=== PATIENT | female | born 1995 | race Caucasian/White ===

== ENCOUNTER 2018-08-27 09:30 | Outpatient (CLI) | payer BC, SELFPAY ==
[2018-08-27 10:06] VITALS: BMI 41.3
--- NOTE | 2018-08-27 23:05 | OB.TRI.NOTE ---
History of Present Illness Date of Service: 08/27/18 Was patient seen by the physician?: No Reason For Visit: DECREASED MOVEMENT Date of Service: 08/27/18 Final TERE Source: US <20 weeks Allergies amoxicillin Allergy (Mild, Verified 03/25/17 15:22) Hives clindamycin Allergy (Mild, Verified 03/25/17 15:22) Other BURNING I N CHEST diphenhydramine [From Benadryl] Allergy (Mild, Verified 03/25/17 15:22) Other MADE ME CRY FOR HOURS erythromycin base [From Erythrocin] Allergy (Mild, Verified 03/25/17 15:22) Unknown NST - FHR Rate Baby A Baseline: 150 Variability:: Moderate Accelerations:: 15 x 15 Decelerations:: None NST Reactive:: Yes, Appropriate for gestational age FHR Category:: Category I Uterine Activity:: none Impression/Plan 22yo @ 23.2 wks- decreased movement 1) NST reactive dc home
== END 2018-08-27 10:20 | disposition home or self-care (01) ==
LOC: WPOUT 09:57 → WP 09:58
PROVIDERS: Family Provider Nurse Practitioner Family; PCP Nurse Practitioner Family; Visit Provider Obstetrics & Gynecology
DX: O36.8120 Decreased fetal movements, second trimester, not applicable or unspecified (principal); Z3A.23 23 weeks gestation of pregnancy
CPT/HCPCS: 59025; 59050; 99218; G0378

== ENCOUNTER 2018-12-08 06:40 | Inpatient (IN) | payer BC, SELFPAY ==
[2018-12-08] MEDS: Lactated Ringers 1,000 ML 50 ML IV ×4 (07:50→22:56)
[2018-12-08 08:18] LABS: Absolute Lymphocyte Count 1.86 X10^3/ul (0.83-4.51); Absolute Neutrophil Count 6.3 X10^3/uL (2.0-7.7); Basophil# 0.01 X10^3/uL; Basophil% 0.1 % (0-1); Eosinophil# 0.09 X10^3/uL; Hematocrit 30.6 % (37-47); Hemoglobin 10.3 g/dl (12.0-15.0); Lymphocyte # 1.86 X10^3/ul (4.0); Lymphocyte % 21.2 % (19-41); Mean Corp Hgb Conc 33.7 g/gl (32-36); Mean Corpuscular Volume 89.2 fL (81-99); Mean Platelet Vol. 9.7 fl (6.2-12.0); Monocyte# 0.46 X10^3/uL; Monocyte% 5.2 % (0-10); Neutrophil # 6.33 X10^3/uL (2.7-7.7); Neutrophil % 72.3 % (47-70); Platelet Count 260 K/mm3 (150-450); RBC Distribution Width CV 13.3 % (11.6-14.6); RBC Distribution Width SD 43.1 fl (35.1-43.9); Red Blood Count 3.43 M/mm3 (4.2-5.4); White Blood Count 8.8 K/mm3 (4.4-11.0)
[2018-12-08 08:19] LABS: POSITIVE COUNT NO; POSITIVE DIFFERENTIAL NO; POSITIVE MORPHOLOGY NO
[2018-12-08 08:21] VITALS: BMI 43.8
[2018-12-08] MEDS: 0.9% Normal Saline 100 ML IV.SOLN. INTRA-UTER (08:33)
[2018-12-08] MEDS: Oxytocin 30 units/NS 500 ml 30 UNITS/500 ML IV.SOLN IV (08:44)
[2018-12-08] MEDS: fentaNYL-bupivacaine (epidural) 100 ML BAG EPIDURAL ×3 (11:54→21:05)
[2018-12-08] MEDS: Ondansetron 4 MG/2 ML Vial IV ×2 (16:19→22:45)
--- NOTE | 2018-12-08 22:56 | PCM.HP.OB ---
History Date of Admission: 03/25/17 Final TERE: 12/22/18 Final TERE Source: US <20 weeks Gestational age: 38 Weeks and 0 Days History of this : This is a 22 year-old, 2 para 0-1-0-1 who presents at 38 weeks gestation for induction of labor to gestational hypertension. Is suspected that she may have underlying chronic hypertension. Her blood pressures trended up during the third . She did not have any evidence of preeclampsia and decision was made to induce her at 38 weeks for either increasing blood pressures with chronic hypertension, or gestational hypertension. She denies any headache or visual disturbances. She denies any epigastric pain. She is had good movement. She denies any vaginal bleeding or leaking of fluid. Previous obstetrical history is significant for a 35-week 6-day induction labor due to preeclampsia. Patient was on magnesium during this labor. She had a vaginal delivery of a 5 pound 12 ounce infant. Current is complicated to date by maternal obesity with BMI of 43 and gestational hypertension. Past medical history is significant for thyroid nodules Medications include labetalol 100 mg p.o. twice daily and vitamins. Allergies amoxicillin Allergy (Mild, Verified 12/08/18 08:23) Hives clindamycin Allergy (Mild, Verified 12/08/18 08:23) Other BURNING I N CHEST diphenhydramine [From Benadryl] Allergy (Mild, Verified 12/08/18 08:23) Other MADE ME CRY FOR HOURS erythromycin base [From Erythrocin] Allergy (Mild, Verified 12/08/18 08:23) Unknown Home Medications: Home Medications Vits [Prenatabs FA] 1 tablet PO DAILY 08/27/18 Labetalol [Trandate] 100 mg PO BID 12/08/18 Magnesium 250 mg PO BID 12/08/18 Smoking Status: Never smoker Alcohol: None Number of Fetus(es): 1 History Past Pregnancies: Past Pregnancies Delivery Date Name GA/Weeks Outcome Route Weight Gender Labor Length Anesthesia Delivery Location Provider FOB Expected Infant Delivery Method: Spontaneous Vaginal Review of Systems Constitutional: Denies: Anorexia, Chills, Fever Eyes: Denies: Blurred vision, Double vision Cardiovascular: Reports: Edema. Denies: Chest Pain Respiratory: Denies: Cough, Shortness of Breath Gastrointestinal: Denies: Abdominal Pain, Diarrhea Skin: Denies: Rash Neurological: Denies: Blurred vision, Change in Speech Hematologic/ Lymphatic: Denies: Anemia, Hx of blood clot Physical Exam General: Alert, Cooperative, No apparent distress Cardiovascular: Regular rate Abdomen: Soft, Non-Distended, Gravid, Appropriate for Gestational Age Extremities:: Deep tendon reflexes - 2+, Other - edema 1+ Neurological: Negative for: Clonus [employer]: Normal external genitalia Estimated gestational size: Appropriate for gestational size Presentation: Cephalic Assessment/Plan This is a 22 year-old, 2 para 0-1-0-1 at 38 weeks gestation with gestational hypertension. No evidence of preeclampsia but will monitor the for this in labor and . We will continue labetalol . Estimated weight at last ultrasound was 3891 g. Pelvis is clinically adequate to expect vaginal delivery. We will proceed with Jackson cervical ripening and Pitocin, AROM induction of labor. Patient's questions were answered to her satisfaction she desires to proceed Procedure note: This morning at approximately 0840 Jackson catheter was placed into the cervical loss using a Jackson catheter guide. Balloon was inflated to 30 cc and placement over the internal cervical loss was confirmed. The patient and fetus tolerated the procedure well.
[2018-12-09] MEDS: fentaNYL-bupivacaine (epidural) 100 ML BAG EPIDURAL (02:34)
[2018-12-09] MEDS: Ondansetron 4 MG/2 ML Vial IV (02:53)
[2018-12-09] MEDS: Acetaminophen 325 MG Tablet PO (04:58)
[2018-12-09] MEDS: Lactated Ringers 1,000 ML 50 ML IV (05:34)
[2018-12-09] MEDS: Oxytocin 30 units/NS 500 ml 30 UNITS/500 ML IV.SOLN 334 UNITS IV (06:35)
--- NOTE | 2018-12-09 06:47 | PCM.OPRPT ---
Vaginal Delivery Maternal Presentation: Medically Indicated Induction - Gestational hypertension Method of Induction: Pitocin, Jackson Bulb, Amniotomy Medical Reason for Induction: Gestational Hypertension Amniotic Membrane Rupture Type: Artificial Amniotic Fluid Description: Lightly stained meconium Final TERE: 12/23/18 Final TERE Source: US <20 weeks Gestational age: 38 Weeks and 0 Days Date of Procedure: 12/09/18 Pre-Operative Diagnosis: Labor Post-Operative Diagnosis: Labor Surgery/ Procedure Performed: Spontaneous Vaginal Delivery Type of Anesthesia: Epidural Description of Procedure: A vigorous male was delivered YOHANA over an intact perineum. The remainder the infant was delivered with maternal pushing and gentle traction only in less than 15 seconds. The Pitocin infusion was initiated for active management of the third stage. The cord was clamped and cut after 1 minute. The was attended to by the waiting nursing staff. The placenta was delivered spontaneously and intact. The cervix and vagina were intact. Sponge and needle counts were correct. A vaginal sweep was completed by me. Presentation: YOHANA Placental Delivery Description: Spontaneous Placenta Disposition: [facility] Cord Vessel Description: 3 Vessels Cord Entanglement: None Drain: Jackson to straight drain Estimated Blood Loss: 300 A gender: Male (1 minute): 8 (5 minute): 9 Episiotomy Description: None Laceration: None Medications given after delivery: IV Pitocin Complications: None
[2018-12-09] MEDS: Oxytocin 30 units/NS 500 ml 30 UNITS/500 ML IV.SOLN 167 UNITS IV (07:05)
[2018-12-09] MEDS: 0.9% Saline Lock 10 ML Syringe IV (08:15)
--- NOTE | 2018-12-09 09:29 | NURSING ---
lab result verified per Dr. Bell and corrected in computer
[2018-12-09] MEDS: Labetalol 100 MG Tablet PO ×3 (09:41→21:05)
[2018-12-09] MEDS: Ibuprofen 600 MG Tablet PO ×2 (10:29→21:05)
[2018-12-09 11:30] VITALS: BP 151/74; PULSE 93; RESP 16; TEMP 36.8
[2018-12-09 12:20] VITALS: BP 142/73
[2018-12-09] MEDS: Senna/Docusate Sodium 1 Tablet PO (14:48)
[2018-12-09 16:00] VITALS: BP 133/79; PULSE 93; RESP 16; TEMP 36.5; O2SAT 98
[2018-12-09 20:50] VITALS: BP 133/72; PULSE 85; RESP 16; TEMP 36.6
[2018-12-10] VITALS (8 sets, daily range): BP systolic 135–155; BP diastolic 65–93; PULSE 75–93; RESP 16–18; TEMP 36.2–36.8; O2SAT 99
[2018-12-10] MEDS: Labetalol 100 MG Tablet PO ×3 (06:32→22:02)
[2018-12-10] MEDS: Senna/Docusate Sodium 1 Tablet PO (08:14)
[2018-12-10 08:37] LABS: Hematocrit 29.3 % (37-47); Hemoglobin 9.9 g/dl (12.0-15.0); Mean Corp Hgb Conc 33.8 g/gl (32-36); Mean Corpuscular Hgb 30.5 pg (27.0-32.0); Mean Corpuscular Volume 90.2 fL (81-99); Platelet Count 250 K/mm3 (150-450); RBC Distribution Width CV 13.4 % (11.6-14.6); RBC Distribution Width SD 43.9 fl (35.1-43.9); Red Blood Count 3.25 M/mm3 (4.2-5.4)
[2018-12-10 08:39] LABS: Scan Indicated on CBC? Y/N NO
--- NOTE | 2018-12-10 11:35 | PCM.PN.OB ---
Subjective: Pain well controlled, average lochia, denies headache, visual disturbances or epigastric pain. She is working on breast-feeding, but is getting a little anxious that the night is not getting enough intake. has been working with the patient. - Physical Exam General: Alert, Cooperative, No apparent distress Extremities: Edema - 2+ edema, 2+ DTRs, no clonus Vital Signs Temp Pulse Resp BP Pulse Ox 97.8 F 83 16 139/82 H 99 12/10/18 08:16 12/10/18 08:16 12/10/18 08:16 12/10/18 08:16 12/10/18 08:16 Oxygen Delivery Method Room Air Weight: 127.006 kg Body Mass Index (BMI) 43.8 Intake and Output for Last 24 Hours 12/08/18 12/09/18 12/10/18 23:59 23:59 23:59 Intake Total 2119 / 2119 4023 / 4023 Output Total 4875 / 4875 5650 / 5650 Balance -2756 / -2756 -1627 / -1627 Laboratory Tests Past 24 Hrs 12/10/18 08:00 WBC 17.0 H RBC 3.25 L Hgb 9.9 L Hct 29.3 L MCV 90.2 MCH 30.5 MCHC 33.8 RDW 13.4 RDW Differential 43.9 Plt Count 250 MPV 10.0 Medical Necessity - Tobacco Use Smoking Status: Never smoker Assessment/Plan Post perm day #1 status post spontaneous vaginal delivery, doing well. Blood pressures are stable but mildly elevated. We will continue labetalol 100 mg p.o. 3 times daily. Hemoglobin and platelets are stable today. Encourage patient to continue working on nursing with her nurse and to ensure she is comfortable with this. I encouraged the patient if she is not comfortable with how things are going, to ask for advice. Otherwise, routine care today and will likely discharge patient home tomorrow if blood pressures are stable.
--- NOTE | 2018-12-10 16:04 | NURSING ---
Dr Whipple notified face to face of BP's. No change in orders.
[2018-12-11 02:25] VITALS: BP 148/92; PULSE 80; RESP 18; TEMP 36.1
[2018-12-11 06:36] VITALS: BP 151/93
[2018-12-11] MEDS: Labetalol 100 MG Tablet PO (06:36)
--- NOTE | 2018-12-11 06:42 | NURSING ---
BP taken with administration of Labetolol
[2018-12-11 08:30] VITALS: BP 149/89; PULSE 77; RESP 16; TEMP 36.1
--- NOTE | 2018-12-11 09:20 | PCM.PN.OB ---
Subjective: Doing well per patient and nursing staff. Ambulating and taking PO without difficulty. Voiding and passing flatus. without difficulty. Denies increased vaginal bleeding or clots. Denies any headaches, visual changes, chest pain , or SOB. Discharge home today. - Physical Exam General: Alert, Cooperative HEENT: Atraumatic, Normocephalic Neck: Trachea Midline Lungs: Clear to auscultation, Normal air movement, No rhonchi, No wheeze Cardiovascular: Regular rate, Regular Rhythm, No murmurs Abdomen: Bowel Sounds Present, - - Fundus Firm 2 below U Extremities: No edema, - - Sen's negative Neurological: Deep Tendon Reflexes 2+/4 and Symmetrical, - - No clonus Psych/Mental Status: Normal Affect, Appropriate Vital Signs Temp Pulse Resp BP Pulse Ox 96.9 F L 77 16 149/89 H 99 12/11/18 08:30 12/11/18 08:30 12/11/18 08:30 12/11/18 08:30 12/10/18 08:16 Oxygen Delivery Method Room Air Weight: 280 lb Body Mass Index (BMI) 43.8 Intake and Output for Last 24 Hours 12/09/18 12/10/18 12/11/18 23:59 23:59 23:59 Intake Total 4023 / 4023 Output Total 5650 / 5650 Balance -1627 / -1627 Medical Necessity - Tobacco Use Smoking Status: Never smoker Assessment/Plan A: PPD #2 Gestational HTN P: 1) Routine and instructions given. 2) Discharge instructions given 3) BP remaining elevated, consulted . Increase Labetalol 200mg PO TID. Follow up in office for BP check in 3 days. Reviewed Pre-e warning signs and when to call. Patient voiced understanding. She will be checking BP at home and call if elevated. 4) Follow up in 2 weeks and 6 weeks. 5) Discharge home today.
--- NOTE | 2018-12-11 09:27 | PCM.DCVAG ---
Discharge Diet: No Restrictions Discharge Activity: Return to Normal Activity, May Drive, May Shower, May Take a Tub Bath May resume sexual activity in: 4-6 weeks Additional Activity Instructions:: Nothing in the vagina for 4-6 weeks. You may return to work/school in 6 weeks. Call your doctor if your incision/area has: Continuous Slow Oozing, Sudden Increased Bleeding, Increased Pain/ Swelling, Increased Redness, Foul Smelling Discharge Call your doctor if you observe: Fever of 101 or Higher, Inability to urinate, Inability to have a bowel movement, Using more than one pad per hour, Shortness of breath, Calf discomfort, Uncontrolled pain Additional Instructions: If you experience any of the following, contact your healthcare provider. Bleeding that soaks a pad every hour for 2 hours Fever 100.4 or higher Unrelieved incision or abdominal pain Swelling, redness, discharge or bleeding from your incision or episiotomy site Your incision begins to separate Problems urinating (including inability to urinate or burning while urinating). Visual changes Severe headache Flu-like symptoms Pain or redness in one of both of your breasts Pain, warmth, tenderness or swelling in your legs, especially the calf area Frequent nausea and vomiting Symptoms of depression or anxiety If you experience any of the following, call 911 or go to the nearest Emergency Room. Chest pain Problems breathing Seizure activity Partial or complete paralysis of a body part, slurred speech, weakness or drooping of the face, or a sudden inability to walk or hold your balance Allergies/Adverse Reactions: Allergies amoxicillin Allergy (Mild, Verified 12/08/18 08:23) Hives clindamycin Allergy (Mild, Verified 12/08/18 08:23) Other BURNING I N CHEST diphenhydramine [From Benadryl] Allergy (Mild, Verified 12/08/18 08:23) Other MADE ME CRY FOR HOURS erythromycin base [From Erythrocin] Allergy (Mild, Verified 12/08/18 08:23) Unknown Medications to take at Discharge Vits [Prenatabs FA] 1 tablet PO DAILY 08/27/18 Magnesium 250 mg PO BID 12/08/18 Labetalol [Trandate (Beta Johanny)] 200 mg PO TID #90 tablet 12/11/18 Please Follow Up With: Ofelia Whipple MD When: Call to make an appointment with your doctor in 3 days for BP check. Make appointment 6 weeks. If you had elevated Blood Pressure or 4th degree laceration you will need to be seen in 2 weeks. Primary Care Physician: Hanna Grimes NP-C [Primary Care Provider] - Test Results: Test results from this visit will be discussed in further detail at your follow-up appointment, if applicable.
--- NOTE | 2018-12-11 09:30 | DCINST_ITS ---
Discharge Diet: No Restrictions Discharge Activity: Return to Normal Activity, May Drive, May Shower, May Take a Tub Bath May resume sexual activity in: 4-6 weeks Additional Activity Instructions:: Nothing in the vagina for 4-6 weeks. You may return to work/school in 6 weeks. Call your doctor if your incision/area has: Continuous Slow Oozing, Sudden Increased Bleeding, Increased Pain/ Swelling, Increased Redness, Foul Smelling Discharge Call your doctor if you observe: Fever of 101 or Higher, Inability to urinate, Inability to have a bowel movement, Using more than one pad per hour, Shortness of breath, Calf discomfort, Uncontrolled pain Additional Instructions: If you experience any of the following, contact your healthcare provider. * Bleeding that soaks a pad every hour for 2 hours * Fever 100.4 or higher * Unrelieved incision or abdominal pain * Swelling, redness, discharge or bleeding from your incision or episiotomy site * Your incision begins to separate * Problems urinating (including inability to urinate or burning while urinating). * Visual changes * Severe headache * Flu-like symptoms * Pain or redness in one of both of your breasts * Pain, warmth, tenderness or swelling in your legs, especially the calf area * Frequent nausea and vomiting * Symptoms of depression or anxiety If you experience any of the following, call 911 or go to the nearest Emergency Room. * Chest pain * Problems breathing * Seizure activity * Partial or complete paralysis of a body part, slurred speech, weakness or drooping of the face, or a sudden inability to walk or hold your balance Allergies/Adverse Reactions: Allergies amoxicillin Allergy (Mild, Verified 12/08/18 08:23) Hives clindamycin Allergy (Mild, Verified 12/08/18 08:23) Other BURNING I N CHEST diphenhydramine [From Benadryl] Allergy (Mild, Verified 12/08/18 08:23) Other MADE ME CRY FOR HOURS erythromycin base [From Erythrocin] Allergy (Mild, Verified 12/08/18 08:23) Unknown Medications to take at Discharge Vits [Prenatabs FA] 1 tablet PO DAILY 08/27/18 Magnesium 250 mg PO BID 12/08/18 Labetalol [Trandate (Beta Johanny)] 200 mg PO TID #90 tablet 12/11/18 Please Follow Up With: Ofelia Whipple MD When: Call to make an appointment with your doctor in 3 days for BP check. Make appointment 6 weeks. If you had elevated Blood Pressure or 4th degree laceration you will need to be seen in 2 weeks. Primary Care Physician: Hanna Grimes NP-C [Primary Care Provider] - Test Results: Test results from this visit will be discussed in further detail at your follow- up appointment, if applicable.
--- NOTE | 2018-12-16 14:04 | NURSING ---
On follow up phone call states feeling better. Patient was re admitted for elevated bp. States all the nurses were great.
== END 2018-12-11 10:40 | disposition home or self-care (01) | DRG 807 ==
PROVIDERS: Admitting Provider Obstetrics & Gynecology; Family Provider Nurse Practitioner Family; PCP Nurse Practitioner Family; Referring Provider Obstetrics & Gynecology; Visit Provider Obstetrics & Gynecology
DX: O13.4 Gestational [pregnancy-induced] hypertension without significant proteinuria, complicating childbirth (principal); Z37.0 Single live birth; O99.214 Obesity complicating childbirth; E66.9 Obesity, unspecified; O77.0 Labor and delivery complicated by meconium in amniotic fluid; Z3A.38 38 weeks gestation of pregnancy
CPT/HCPCS: 59025; 59050; 85025; 85027; 86850; 86900; 99218; J7120; A4216; G0378; J2405

== ENCOUNTER 2018-12-13 16:42 | Inpatient (IN) | payer BC, SELFPAY ==
[2018-12-13] VITALS (8 sets, daily range): BP systolic 122–165; BP diastolic 64–95; PULSE 82–115; RESP 16–20; TEMP 36.9–37.3; O2SAT 96–97; BMI 41.0
--- NOTE | 2018-12-13 16:39 | EKGRS_ITS ---
Test Reason : HTN Blood Pressure : / mmHG Vent. Rate : 086 BPM Atrial Rate : 086 BPM P-R Int : 108 ms QRS Dur : 100 ms QT Int : 358 ms P-R-T Axes : 056 087 042 degrees QTc Int : 428 ms Sinus rhythm with short TN Otherwise normal ECG No previous ECGs available Confirmed by JESSICA REECE, DAMASO ([id number]), order editor AUBREY PEDRO ([id number] on 12/25/2018 2:54:45 PM Referred By: Ofelia Whipple Confirmed By:DAMASO LOPEZ MD
[2018-12-13] MEDS: 0.9% NaCl Peripheral Flush Adult/Peds IV ×4 (16:45→18:42)
[2018-12-13 17:18] LABS: Hematocrit 36.4 % (37-47); Hemoglobin 12.3 g/dl (12.0-15.0); Mean Corp Hgb Conc 33.8 g/gl (32-36); Mean Corpuscular Hgb 30.2 pg (27.0-32.0); Mean Corpuscular Volume 89.4 fL (81-99); Mean Platelet Vol. 10.3 fl (6.2-12.0); Platelet Count 399 K/mm3 (150-450); RBC Distribution Width CV 12.7 % (11.6-14.6); RBC Distribution Width SD 41.3 fl (35.1-43.9); Red Blood Count 4.07 M/mm3 (4.2-5.4); White Blood Count 12.9 K/mm3 (4.4-11.0)
[2018-12-13 17:25] LABS: Scan Indicated on CBC? Y/N NO
[2018-12-13] MEDS: Ibuprofen 600 MG Tablet PO (17:51)
--- NOTE | 2018-12-13 18:09 | PCM.HP.BLA ---
History and Physical Date of Admission: 12/13/18 22-year-old multigravida female status post spontaneous vaginal delivery on 12/09/2018 after induction for gestational hypertension presents for elevated blood pressures . She also has a headache in the back of her head that she has had all day that approximately 5 out of 10 not relieved with ibuprofen. She denies any visual disturbances or epigastric pain. She presented to the office today with persistently elevated blood pressures and was sent to labor and delivery for evaluation. Review of systems: General: No fevers or chills cardiac: No chest pain or palpitations resp: no SOB or Cough heme- no h/o prolonged bleeding or easy bruising PE_ see vitals general- awake, alert, NAD, tearful abd -soft ,nontender ext-2+ Edema, 2+ DTRs, no clonus a/p 22-year-old female multigravida status vaginal delivery on 12/09/2018 now with what appears to be preeclampsia. Required IV hydralazine. Will start on Procardia p.o. Will use IV hydralazine as needed for breakthrough. Labs are stable. Will initiate magnesium prophylaxis overnight. Reevaluate in the morning. Will likely need to go home on increased labetalol and Procardia.
[2018-12-13] MEDS: hydrALAZINE 20 MG/ML Vial 10 MG IV ×2 (18:12→18:42)
[2018-12-13 18:15] LABS: BNP,B-Type NATRIURETIC PEPTIDE 67.6 pg/mL (0-100)
[2018-12-13] MEDS: NIFEdipine 30 MG Tablet PO (18:30)
[2018-12-13 18:45] LABS: ALB/GLOB Ratio 0.8 RATIO (0.9-2.4); AST(SGOT) 40 U/L (15-37); Alanine Aminotransfer ALT/SGPT 50 U/L (13-56); Albumin, Serum 3.3 g/dL (3.2-5.0); Alkaline Phosphatase 89 U/L (45-117); Anion Gap 7 (5-15); BUN 9 mg/dL (7-18); BUN/Creat Ratio 14.3 RATIO (10-20); Calcium,Total 8.8 mg/dL (8.5-10.1); Chloride 107 mmol/L (98-107); Creatinine, Serum 0.63 mg/dL (0.55-1.02); EST Glomerular Filtration Rate 122 mL/min (>60); Est Glom Filt Rate - Afr Amer 148 mL/min (>60); Globulin 4.3 g/dL (2.2-4.2); Glucose 89 mg/dL (74-106); Potassium 3.5 mmol/L (3.5-5.1); Protein, Total 7.6 g/dL (6.4-8.2); Sodium Level 141 mmol/L (136-145); Thyroid Stim Hormone (TSH) 2.01 uIU/mL (0.358-3.74)
[2018-12-13] MEDS: Magnesium Sulfate 20 GM/500 ML BAG IV (19:25)
[2018-12-13] MEDS: Acetaminophen 500 MG Tablet 1000 MG PO (20:28)
--- NOTE | 2018-12-13 20:56 | NURSING ---
1910 See QS system for vital signs per hypertension protocol.
--- NOTE | 2018-12-13 21:51 | NURSING ---
0079 called in to check on pt status. Reviewed recent BP values, c/o headache 09/03 and medications given. Plan to continue as is and call if any further changes.
[2018-12-13] MEDS: Labetalol 200 MG Tablet 300 MG PO (21:56)
[2018-12-14] VITALS (20 sets, daily range): BP systolic 95–143; BP diastolic 54–87; PULSE 76–112; RESP 14–20; TEMP 36.8–37.3; O2SAT 95–99
--- NOTE | 2018-12-14 01:58 | NURSING ---
0158 Pt has increased facial swelling, specifically around eyes since start of magnesium infusion. Cold cloth given to pt to help reduce swelling. Pt denies any other pertinent symptoms of pre-eclampsia or adverse reaction to medication.
[2018-12-14] MEDS: Ibuprofen 600 MG Tablet PO ×3 (03:35→19:42)
[2018-12-14] MEDS: Magnesium Sulfate 20 GM/500 ML BAG IV ×2 (04:42→14:31)
[2018-12-14] MEDS: Labetalol 200 MG Tablet 300 MG PO ×3 (05:41→22:18)
--- NOTE | 2018-12-14 05:51 | NURSING ---
8809 updated on pt status through the night and BP values. Discussed POC to keep magnesium for 24Hours at this time, will reassess around lunchtime.
[2018-12-14] MEDS: Acetaminophen 500 MG Tablet 1000 MG PO ×3 (07:40→23:48)
--- NOTE | 2018-12-14 09:20 | NURSING ---
urine specimen obtained. peripheral stick for lab draw done. specimens sent to lab. pt tolerated well. pt's in room. pt is nursing baby at this time. pt states tylenol decreased her headache level to a 1/10. pt c/o some blurry vision
[2018-12-14 09:40] LABS: Hematocrit 35.7 % (37-47); Hemoglobin 12.1 g/dl (12.0-15.0); Mean Corp Hgb Conc 33.9 g/gl (32-36); Mean Corpuscular Hgb 30.5 pg (27.0-32.0); Mean Corpuscular Volume 89.9 fL (81-99); Mean Platelet Vol. 9.5 fl (6.2-12.0); Platelet Count 356 K/mm3 (150-450); RBC Distribution Width CV 13.2 % (11.6-14.6); RBC Distribution Width SD 42.8 fl (35.1-43.9); Red Blood Count 3.97 M/mm3 (4.2-5.4); Scan Indicated on CBC? Y/N NO; White Blood Count 15.1 K/mm3 (4.4-11.0)
[2018-12-14] MEDS: NIFEdipine 30 MG Tablet PO (09:42)
[2018-12-14 09:46] LABS: International Normalized Ratio 1.1; Prothrombin Time (Protime)PT. 13.6 SECONDS (11.7-14.9)
[2018-12-14 09:52] LABS: AST(SGOT) 24 U/L (15-37); Alanine Aminotransfer ALT/SGPT 41 U/L (13-56); Creatinine, Serum 0.59 mg/dL (0.55-1.02); EST Glomerular Filtration Rate 133 mL/min (>60); Est Glom Filt Rate - Afr Amer 161 mL/min (>60); Estimated Creatinine Clearance 142.98 ml/min; Protein, Urine (Random) 56.6 mg/dL (<11.9); Protein:Creat Ratio 582 mg/g CRE (0-200); Uric Acid 5.9 mg/dL (2.6-6.0)
--- NOTE | 2018-12-14 11:30 | NURSING ---
pt states that her vision has cleared up and is no longer blurry
--- NOTE | 2018-12-14 13:00 | PN.OBGYN_ITS ---
Subjective: Patient laying down in bed, IV Magnesium per protocol continues to infuse at this time. Patient reports improvement of LERNER though she reports my eyes feel really puffy and swollen. Patient denies scotoma, RUQ pain or dizziness. Patient continues to pump breastmilk at this time. Objective: VSS, Afebrile - patient has been normotensive since this morning Magnesium infusing at 2g/hr Rpt Pre-E bloodwork done - now liver enzymes WNL A+O x 3, NAD Abdomen NT x 4 quadrants +2/4 reflexes in LE, no clonus, no edema negative calf tenderness to palpation - Physical Exam General: Alert, Oriented x3, Cooperative HEENT: Atraumatic, PERRLA, EOMI, Normocephalic Lungs: Clear to auscultation, Normal air movement Cardiovascular: Regular rate, No murmurs Abdomen: Soft, Non Tender Extremities: No edema, Capillary Refill Less than 3 Seconds, No Calf Tenderness, Peripheral Pulses Normal Skin: No rashes, No breakdown Musculoskeletal: No Tenderness to Palpation of Joints or Extremities Neurological: Cranial nerves II-XII grossly intact, Deep Tendon Reflexes 2+/4 and Symmetrical, Neuro grossly intact, Motor Exam 5/5 strength throughout Psych/Mental Status: Normal Affect, Appropriate Vital Signs Temp Pulse Resp BP Pulse Ox 98.2 F 90 16 109/56 L 97 12/14/18 11:30 12/14/18 11:30 12/14/18 11:30 12/14/18 11:30 12/14/18 11:30 Oxygen Delivery Method Room Air Weight: 262 lb Body Mass Index (BMI) 41.0 Intake and Output for Last 24 Hours 12/12/18 12/13/18 12/14/18 23:59 23:59 23:59 Intake Total 1217 / 1217 2744 / 2744 Output Total 1200 / 1200 2225 / 2225 Balance 519 / 519 Laboratory Tests Past 24 Hrs 12/13/18 12/13/18 12/13/18 16:41 16:41 16:41 WBC 12.9 H RBC 4.07 L Hgb 12.3 Hct 36.4 L MCV 89.4 MCH 30.2 MCHC 33.8 RDW 12.7 RDW Differential 41.3 Plt Count 399 MPV 10.3 PT INR APTT Sodium 141 Potassium 3.5 Chloride 107 Carbon Dioxide 27.0 Anion Gap 7 BUN 9 Creatinine 0.63 Estim Creat Clear Calc 133.90 Est GFR (MDRD) Af Amer 148 Est GFR (MDRD) Non-Af 122 BUN/Creatinine Ratio 14.3 Glucose 89 Uric Acid Calcium 8.8 Total Bilirubin 0.20 AST 40 H ALT 50 Alkaline Phosphatase 89 B-Natriuretic Peptide 67.6 Total Protein 7.6 Albumin 3.3 Globulin 4.3 H Albumin/Globulin Ratio 0.8 L TSH 2.01 U Random Total Protein Urine Creatinine Protein/Creatinin Ratio 12/14/18 12/14/18 12/14/18 09:30 09:30 09:30 WBC 15.1 H RBC 3.97 L Hgb 12.1 Hct 35.7 L MCV 89.9 MCH 30.5 MCHC 33.9 RDW 13.2 RDW Differential 42.8 Plt Count 356 MPV 9.5 PT 13.6 INR 1.1 APTT 29.0 Sodium Potassium Chloride Carbon Dioxide Anion Gap BUN Creatinine 0.59 Estim Creat Clear Calc 142.98 Est GFR (MDRD) Af Amer 161 Est GFR (MDRD) Non-Af 133 BUN/Creatinine Ratio Glucose Uric Acid 5.9 Calcium Total Bilirubin AST 24 ALT 41 Alkaline Phosphatase B-Natriuretic Peptide Total Protein Albumin Globulin Albumin/Globulin Ratio TSH U Random Total Protein Urine Creatinine Protein/Creatinin Ratio 12/14/18 09:30 WBC RBC Hgb Hct MCV MCH MCHC RDW RDW Differential Plt Count MPV PT INR APTT Sodium Potassium Chloride Carbon Dioxide Anion Gap BUN Creatinine Estim Creat Clear Calc Est GFR (MDRD) Af Amer Est GFR (MDRD) Non-Af BUN/Creatinine Ratio Glucose Uric Acid Calcium Total Bilirubin AST ALT Alkaline Phosphatase B-Natriuretic Peptide Total Protein Albumin Globulin Albumin/Globulin Ratio TSH U Random Total Protein 56.6 H Urine Creatinine 97.20 Protein/Creatinin Ratio 582 H Medical Necessity - Tobacco Use Smoking Status: Never smoker Assessment/Plan 22 y/o s/p with readmission for PP pre-eclampsia P: 1) Consultation with Dr. Nevarez - will continue the PP Magnesium IV inf usion for a total of 24 hours - will discontinue at 7pm today 2) Continue present management Karen Claudio APRN-JODY
--- NOTE | 2018-12-14 13:55 | NURSING ---
Dr. Whipple on unit. plan for magnesium discussed. plan to discontinue magnesium drip at 1700
--- NOTE | 2018-12-14 22:28 | NURSING ---
pt complaint of headache at base of neck. BP taken and within normal limits. @ 2114 CMasonCNM on unit and made aware. plan is to continue alternating Motrin and Tylenol with Labetalol as ordered and to continue to monitor.
[2018-12-15] MEDS: Ibuprofen 600 MG Tablet PO (03:22)
[2018-12-15 03:23] VITALS: BP 125/66; PULSE 100; RESP 17
[2018-12-15] MEDS: Labetalol 200 MG Tablet 300 MG PO (06:17)
--- NOTE | 2018-12-15 08:47 | PCM.PN.OB ---
Subjective: Doing well per patient and nursing staff. Headache much improved. Admits to annoying dull ache present still but has not been up out of bed this am. Denies any scotoma, chest pain, SOB, or RUQ abdominal pain. Patient stating she feels much better from when she originally presented with headache. Pumping with breast pump. - Physical Exam General: Alert, Oriented x3, Cooperative HEENT: Atraumatic, Normocephalic Neck: Trachea Midline Lungs: Clear to auscultation, Normal air movement, No rhonchi, No wheeze Cardiovascular: Regular rate, Regular Rhythm, No murmurs Abdomen: Bowel Sounds Present Extremities: No edema Neurological: Deep Tendon Reflexes 2+/4 and Symmetrical, - - No clonus Psych/Mental Status: Normal Affect, Appropriate Vital Signs Temp Pulse Resp BP Pulse Ox 99.0 F 100 17 125/66 H 96 12/14/18 19:40 12/15/18 03:23 12/15/18 03:23 12/15/18 03:23 12/14/18 16:40 Oxygen Delivery Method Room Air Weight: 262 lb Body Mass Index (BMI) 41.0 Intake and Output for Last 24 Hours 12/13/18 12/14/18 12/15/18 23:59 23:59 23:59 Intake Total 1217 / 1217 3818.5 / 3818.5 Output Total 1200 / 1200 3625 / 3625 Balance 193.5 / 193.5 Laboratory Tests Past 24 Hrs 12/14/18 12/14/18 12/14/18 09:30 09:30 09:30 WBC 15.1 H RBC 3.97 L Hgb 12.1 Hct 35.7 L MCV 89.9 MCH 30.5 MCHC 33.9 RDW 13.2 RDW Differential 42.8 Plt Count 356 MPV 9.5 PT 13.6 INR 1.1 APTT 29.0 Creatinine 0.59 Estim Creat Clear Calc 142.98 Est GFR (MDRD) Af Amer 161 Est GFR (MDRD) Non-Af 133 Uric Acid 5.9 AST 24 ALT 41 U Random Total Protein Urine Creatinine Protein/Creatinin Ratio 12/14/18 09:30 WBC RBC Hgb Hct MCV MCH MCHC RDW RDW Differential Plt Count MPV PT INR APTT Creatinine Estim Creat Clear Calc Est GFR (MDRD) Af Amer Est GFR (MDRD) Non-Af Uric Acid AST ALT U Random Total Protein 56.6 H Urine Creatinine 97.20 Protein/Creatinin Ratio 582 H Medical Necessity - Tobacco Use Smoking Status: Never smoker Assessment/Plan A: pre-eclampsia P: 1) Consulted and patient ok for discharge today. BP stable. Mag stopped last evening at 7pm. 2) Discharge home with Labetalol 200mg PO TID and Procardia 60mg PO once daily. 3) Follow up in office on Tuesday with for visit in 4 days.
[2018-12-15 08:55] VITALS: BP 123/63; PULSE 102; RESP 16; TEMP 37.9
--- NOTE | 2018-12-15 08:55 | DCINST_ITS ---
Discharge Diet: No Restrictions Discharge Activity: Return to Normal Activity, May Drive, May Shower, May Take a Tub Bath May resume sexual activity in: 4-6 weeks Weight Bearing Status: Full weight bearing Call your doctor if you observe: Fever of 101 or Higher, Inability to urinate, Inability to have a bowel movement, Using more than one pad per hour, Shortness of breath, Dizziness, Swelling in the ankles, Chest pain, Increased palpitations (irregular heartbeat), Uncontrolled pain Additional Instructions: If you experience any of the following, contact your healthcare provider. * Bleeding that soaks a pad every hour for 2 hours * Fever 100.4 or higher * Unrelieved incision or abdominal pain * Swelling, redness, discharge or bleeding from your incision or episiotomy site * Your incision begins to separate * Problems urinating (including inability to urinate or burning while urinating). * Visual changes * Severe headache * Flu-like symptoms * Pain or redness in one of both of your breasts * Pain, warmth, tenderness or swelling in your legs, especially the calf area * Frequent nausea and vomiting * Symptoms of depression or anxiety If you experience any of the following, call 911 or go to the nearest Emergency Room. * Chest pain * Problems breathing * Seizure activity * Partial or complete paralysis of a body part, slurred speech, weakness or drooping of the face, or a sudden inability to walk or hold your balance Allergies/Adverse Reactions: Allergies amoxicillin Allergy (Mild, Verified 12/08/18 08:23) Hives clindamycin Allergy (Mild, Verified 12/08/18 08:23) Other BURNING I N CHEST diphenhydramine [From Benadryl] Allergy (Mild, Verified 12/08/18 08:23) Other MADE ME CRY FOR HOURS erythromycin base [From Erythrocin] Allergy (Mild, Verified 12/08/18 08:23) Unknown Medications to take at Discharge Labetalol [Trandate (Beta Johanny)] 200 mg PO TID #90 tablet 12/11/18 NIFEdipine [Procardia Xl] 60 mg PO DAILY #30 tab 12/15/18 The following prescriptions were given: NIFEdipine [Procardia Xl] 60 mg PO DAILY #30 tab When: Call to make an appointment with on TuesdayDecember 19. Primary Care Physician: Opheim,Hanna, [employer]NS[employer] CASE MANAGER-C [Primary Care Provider] - Test Results: Test results from this visit will be discussed in further detail at your follow- up appointment, if applicable.
[2018-12-15] MEDS: NIFEdipine 60 MG Tablet PO (09:03)
--- NOTE | 2018-12-15 10:49 | NURSING ---
1000 dc to home pt able to verbalizes s/s of pre e and when to f/u with a appt. and when to call physician
== END 2018-12-15 10:00 | disposition home or self-care (01) | DRG 776 ==
LOC: WPOUT 12-14 10:40 → WP 12-14 10:41
PROVIDERS: Advanced Practice Midwife; Admitting Provider Obstetrics & Gynecology; Family Provider Nurse Practitioner Family; PCP Nurse Practitioner Family; Referring Provider Obstetrics & Gynecology; Visit Provider Obstetrics & Gynecology
DX: O14.95 Unspecified pre-eclampsia, complicating the puerperium (principal)
CPT/HCPCS: 36415; 80053; 82565; 82570; 83880; 84156; 84443; 84450; 84460; 84550; 85027; 85610; 85730; 93005; 94760; A4216